=== PATIENT | female | born 1965 | race Caucasian/White ===

== ENCOUNTER → 2021-02-04 | Day surgery (SDC) | payer OTHER ==
[~2021-02-04] VITALS: Ht 170.2 cm; Wt 72.6 kg
[~2021-02-04] MED LIST: ALLERGY RELIEF10 M1 PO; ATARAX25 MG PO; BENTYL10 MG PO; NAPROXEN500 MG PO; TOPROL XL 25MG25 MG PO
[2021-02-04 07:29] LABS: HGB 12.6 g/dl (12.5-16.0); MCH 28.6 pg (25.0-31.0); MCHC 33.2 g/dL (32.0-36.0); MCV 86.2 fL (78.0-100.0); MPV 10.1 fL (6.0-9.5); RBC 4.41 M/uL (4.20-5.40); RDW 13.2 % (11.5-14.0); WBC 5.7 K/uL (4.0-10.5)
[2021-02-04 07:48] LABS: ALBUMIN 4.5 g/dL (3.4-5.0); BILIRUBIN - TOTAL 0.6 mg/dL (0.2-1.0); BUN/CREAT RATIO (CALC) 19.8 RATIO; CREATININE 1.01 mg/dL (0.51-0.95); GLOBULIN (CALCULATION) 3.8 g/dL; POTASSIUM 4.3 mmol/L (3.5-5.1); TOTAL PROTEIN 8.3 g/dL (6.4-8.2)
== END | disposition home or self-care (01) ==
LOC: FAS 06:53
PROVIDERS: Surgery
DX: K29.50 Unspecified chronic gastritis without bleeding (principal); B96.81 Helicobacter pylori [H. pylori] as the cause of diseases classified elsewhere; K58.1 Irritable bowel syndrome with constipation; F41.9 Anxiety disorder, unspecified; M19.90 Unspecified osteoarthritis, unspecified site; F32.9 Major depressive disorder, single episode, unspecified; E05.90 Thyrotoxicosis, unspecified without thyrotoxic crisis or storm; Z88.5 Allergy status to narcotic agent; Z88.8 Allergy status to other drugs, medicaments and biological substances; Z79.899 Other long term (current) drug therapy
CPT/HCPCS: 36415; 80053; J1610; J2250; J2704; J7120

== ENCOUNTER → 2021-04-27 | Day surgery (SDC) | payer OTHER ==
[~2021-04-27] VITALS: Ht 170.2 cm; Wt 72.6 kg
[~2021-04-27] MED LIST changes: +ESCITALOPRAM OXA5 MG PO; +LEVSIN0.125 MG PO; +PERCOCET 5-3251 EACH PO; +PHENERGAN25 M1 PO; +PRILOSEC20 MG PO
[2021-04-27 07:46] LABS: HCT 39.8 % (37.0-47.0); HGB 12.6 g/dl (12.5-16.0); MCH 27.5 pg (25.0-31.0); MCHC 31.7 g/dL (32.0-36.0); MCV 86.7 fL (78.0-100.0); MPV 10.4 fL (6.0-9.5); RBC 4.59 M/uL (4.20-5.40); RDW 12.5 % (11.5-14.0); WBC 4.3 K/uL (4.0-10.5)
[2021-04-27 08:06] LABS: ALBUMIN 4.1 g/dL (3.4-5.0); BILIRUBIN - TOTAL 0.3 mg/dL (0.2-1.0); BUN/CREAT RATIO (CALC) 20.9 RATIO; CREATININE 0.91 mg/dL (0.51-0.95); GLOBULIN (CALCULATION) 3.8 g/dL; TOTAL PROTEIN 7.9 g/dL (6.4-8.2)
== END | disposition home or self-care (01) ==
LOC: FAS 07:18
PROVIDERS: Surgery
DX: K81.1 Chronic cholecystitis (principal); I10 Essential (primary) hypertension; K58.9 Irritable bowel syndrome, unspecified; Z98.51 Tubal ligation status; Z88.6 Allergy status to analgesic agent; Z88.5 Allergy status to narcotic agent; Z79.899 Other long term (current) drug therapy
CPT/HCPCS: 36415; 74300; 80053; C1758; J2250; J2405; J2704; J2710; J3010; Q9967